=== PATIENT | male | born 1950 | race Caucasian/White ===

== ENCOUNTER 2017-08-01 19:33 | Emergency (ER) | payer MEDICARE, MEDICAID ==
[~2017-08-01] VITALS: Ht 188 cm; Wt 64.0 kg
[~2017-08-01 19:33] MED LIST: ASPI1TAB7 PO; CARV3.125 PO; COLA100C5 PO; ELVI1TAB3 PO; EMPA1TAB PO; ERGO2000 PO; ISOS60 PO; LANO0.2510 PO; MIRTA15 PO; NAPR-729 PO; PLAV75TA PO; ROSU40 PO; TOPR50TA PO; VALT1TAB PO; ZETI10TA5 PO
[2017-08-01 19:49] VITALS: BP 165/86; PULSE 76; RESP 18; TEMP 98.4; O2SAT 98
--- NOTE | 2017-08-01 20:46 | PD ---
HPI Chief Complaint: Injury Time Seen by Provider: 20:36 Travel History International Travel<30 days: No Contact w/Intl Traveler<30days: No Traveled to known affect area: No History of Present Illness HPI Patient is a 67-year-old male who says he fell yesterday hit his head but he has no injury he has some dried blood on his elbow right-sided he has some dried blood on his right knee but he says he has no pain that he says [facility] and has swelling to his left ankles tenderness redness and warmth denies that he hurt his ankle yesterday on that side he says it was fine up until today. Patient is had stents cardiac history he is on digoxin as well as metoprolol isosorbide and in his wallet he has a card that says infusion therapy, I ask him what is he getting infusion therapy for he says they just discovered cancer all through his body but nobody knows what kind it is .. 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 he is very sun exposed appearance .. 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, FIRST IN 1999, STENTS X 5 OR 6) High Cholesterol: Yes Chemotherapy: No Chest Pain: Yes Congestive Heart Failure: No COPD: No Diabetes: No Diminished Hearing: No Endocrine: No Gastrointestinal Disorders: Yes (ACID REFLUX) Glaucoma: No Genitourinary: No Hepatitis: No Hiatal Hernia: No Hypertension: Yes Immune Disorder: Yes (HIV POSITIVE) Inguinal Hernia: Yes Musculoskeletal: Yes (ARTHRITIS IN BACK AND HANDS) Neurologic: No Psychiatric: No Reproductive: No Respiratory: Yes (QUIT SMOKING 10 YEARS AGO, DIFFICULTY BREATHING ON EXERTION) Myocardial Infarction: Yes (X7) Radiation Therapy: No Sleep Apnea: No Thyroid Disease: No Triglycerides - High: Yes Tetanus Vaccination: < 5 Years Influenza Vaccination: No Past Surgical History Abdominal Surgery: Yes (HERNIA REPAIR X2) AICD: No Appendectomy: Yes Arteriovenous Shunt: No Body Medical Devices: CARDIAC STENTS (5 OR 6), MESH R GROIN Cardiac Surgery: Yes Ear Surgery: Yes (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, 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) Endocrine Surgery: No Eye Surgery: Yes Genitourinary Surgery: No Insulin Pump: No Joint Replacement: No Oral Surgery: No Pacemaker: No Thoracic Surgery: No Other Surgery: Yes (SKIN CA) Social History Alcohol Use: No Tobacco Use: No Substance Use: No Allergies-Medications (Allergen,Severity, Reaction): Coded Allergies: tomato (Verified Allergy, Severe, SOB AT TIMES, 08/05/17) Uncoded Allergies: CITRUS (Allergy, Severe, SOB AT TIMES, 02/11/09) Reported Meds & Prescriptions Reported Meds & Active Scripts Active Clindamycin (Clindamycin HCl) 300 Mg Cap 300 Mg PO TID Levaquin (Levofloxacin) 500 Mg Tablet 500 Mg PO DAILY Reported Furosemide Inj (Furosemide) 10 Mg/Ml Inj 40 Mg IV PUSH WEEKLY PRN Ns + Kcl 20 Meq Inj 1,000 Ml Bag 1,000 Ml IV WEEKLY PRN Clopidogrel (Clopidogrel Bisulfate) 75 Mg Tab 75 Mg PO DAILY Potassium Chloride ER (Potassium Chloride) 20 Meq Tab 20 Meq PO DAILY Aspirin EC (Aspirin) 81 Mg Tabdr 81 Mg PO DAILY Isosorbide Mononitrate ER (Isosorbide Mononitrate) 60 Mg Tab 60 Mg PO DAILY Metoprolol Succinate ER 24 HR (Metoprolol Succinate) 25 Mg Tab Unknown Dose PO DAILY Digoxin 0.25 Mg Tab 0.25 Mg PO DAILY Mirtazapine 15 Mg Tab 15 Mg PO HS Rosuvastatin (Rosuvastatin Calcium) 5 Mg Tab Unknown Dose PO DAILY Vitamin C (Ascorbic Acid) 250 Mg Chew 500 Mg PO DAILY Genvoya (Qjnohqefukzs-Boususcqde-Wtzejvjbtixw-Tenofvir) [phone] Mg Tab 1 Tab PO DAILY Vitamin D2 (Ergocalciferol) 2,000 Unit Tab 2,000 Units PO DAILY Jardiance (Empagliflozin) 10 Mg Tab 10 Mg PO DAILY Colace (Docusate Sodium) 100 Mg Capsule 100 Mg PO BID Valtrex (Valacyclovir HCl) 1,000 Mg Tab 1,000 Mg PO DAILY Review of Systems Except as stated in HPI: all other systems reviewed are Neg Skin: Positive Other (redness and swelling to foot left ) Physical Exam Narrative GENERAL: Pt is very sun burned and pain to foot left SKIN: Warm and dry. HEAD: Atraumatic. Normocephalic. EYES: Pupils equal and round. No scleral icterus. No injection or drainage. ENT: No nasal bleeding or discharge. Mucous membranes pink and moist. NECK: Trachea midline. No JVD. CARDIOVASCULAR: Regular rate and rhythm. RESPIRATORY: No accessory muscle use. Clear to auscultation. Breath sounds equal bilaterally. GASTROINTESTINAL: Abdomen soft, non-tender, nondistended. Hepatic and splenic margins not palpable. MUSCULOSKELETAL: Extremities left foot is red tender swollen he is diffusely suntan so it is hard to tell the extent of the redness but there is lateral malleolus swelling tenderness NEUROLOGICAL: Awake and alert. No obvious cranial nerve deficits. Motor grossly within normal limits. Five out of 5 muscle strength in the arms and legs. Normal speech. PSYCHIATRIC: Appropriate mood and affect; insight and judgment normal. Data Data Last Documented VS Vital Signs Date Time Temp Pulse Resp B/P (MAP) Pulse Ox O2 Delivery O2 Flow Rate FiO2 08/02/17 01:20 08/02/17 00:00 77 16 95 Room Air 08/01/17 19:49 98.4 Orders Orders Complete Blood Count With Diff (08/01/17 20:51) Comprehensive Metabolic Panel (08/01/17 20:51) Lactic Acid Sepsis Protocol (08/01/17 20:51) Urinalysis - C+S If Indicated (08/01/17 20:51) Blood Culture (08/01/17 20:51) Chest, Single Ap (08/01/17 20:51) Ecg Monitoring (08/01/17 20:51) Iv Access Insert/Monitor (08/01/17 20:51) Oximetry (08/01/17 20:51) Oxygen Administration (08/01/17 20:51) Foot, Complete (Uhe1gbn) (08/01/17 ) Ketorolac Inj (Toradol Inj) (08/01/17 22:45) Sodium Chlor 0.9% 1000 Ml Inj (Ns 1000 M (08/01/17 22:45) Vancomycin Inj (Vancomycin Inj) (08/01/17 22:45) Levofloxacin (Levaquin) (08/02/17 01:00) Ed Discharge Order (08/02/17 00:55) Labs Laboratory Tests Test 08/01/17 20:50 08/01/17 20:58 08/01/17 23:55 08/02/17 00:05 White Blood Count 11.0 TH/MM3 Red Blood Count 4.05 MIL/MM3 Hemoglobin 14.9 GM/DL Hematocrit 43.3 % Mean Corpuscular Volume 107.0 FL Mean Corpuscular Hemoglobin 36.9 PG Mean Corpuscular Hemoglobin Concent 34.5 % Red Cell Distribution Width 15.0 % Platelet Count 187 TH/MM3 Mean Platelet Volume 8.2 FL Neutrophils (%) (Auto) 66.5 % Lymphocytes (%) (Auto) 21.6 % Monocytes (%) (Auto) 11.0 % Eosinophils (%) (Auto) 0.5 % Basophils (%) (Auto) 0.4 % Neutrophils # (Auto) 7.3 TH/MM3 Lymphocytes # (Auto) 2.4 TH/MM3 Monocytes # (Auto) 1.2 TH/MM3 Eosinophils # (Auto) 0.1 TH/MM3 Basophils # (Auto) 0.0 TH/MM3 CBC Comment DIFF FINAL Differential Comment Blood Urea Nitrogen 20 MG/DL Creatinine 1.50 MG/DL Random Glucose 96 MG/DL Total Protein 8.2 GM/DL Albumin 4.0 GM/DL Calcium Level 9.2 MG/DL Alkaline Phosphatase 60 U/L Aspartate Amino Transf (AST/SGOT) 65 U/L Alanine Aminotransferase (ALT/SGPT) 44 U/L Total Bilirubin 0.8 MG/DL Sodium Level 137 MEQ/L Potassium Level 3.0 MEQ/L Chloride Level 102 MEQ/L Carbon Dioxide Level 25.2 MEQ/L Anion Gap 10 MEQ/L Estimat Glomerular Filtration Rate 47 ML/MIN Lactic Acid Level 3.1 mmol/L 0.9 mmol/L Urine Color LIGHT-YELLOW Urine Turbidity CLEAR Urine pH 5.5 Urine Specific [place] 1.006 Urine Protein 30 mg/dL Urine Glucose (UA) 300 mg/dL Urine Ketones NEG mg/dL Urine Occult Blood SMALL Urine Nitrite NEG Urine Bilirubin NEG Urine Urobilinogen LESS THAN 2.0 MG/DL Urine Leukocyte Esterase NEG Urine RBC 1 /hpf Urine WBC 1 /hpf Urine Mucus FEW /lpf Microscopic Urinalysis Comment CATH-CULT NOT IND MDM Medical Decision Making Medical Screen Exam Complete: Yes Emergency Medical Condition: Yes Differential Diagnosis pt reports normal CD4 and immune system Narrative Course Xray shows no signs of osteomyelitis and pt refuses to stay as inpt for Vanco IV for few days , He is made aware that if his CD4 count is low he is at risk for serios compliactions of cellulitis spreading. He insists he can not stay , I ask him to proved numbers for CD4 and ask directly if they are above 500 but he says yes, I am not convinced he knows the answer and I can not find info in the computer system to clarify, I given him dbl PO coverage with Levaquin and clindamycin to pre- empt spreading of the cellulits and discharge instructing the need for close observation of improvement or returning immediatey to ER for admit with IV antibiotics pt agrees Diagnosis Primary Impression: Cellulitis Qualified Codes: L03.90 - Cellulitis, unspecified Referrals: Juana Gutierrez DPGisell Patient Instructions: Cellulitis (ED), General Instructions Scripts Clindamycin (Clindamycin) 300 Mg Cap 300 MG PO TID for Infection, #30 CAP 0 Refills Prov: Domenico Smith MD 08/02/17 Levofloxacin (Levaquin) 500 Mg Tablet 500 MG PO DAILY for Infection, #10 TAB 0 Refills Prov: Domenico Smith MD 08/02/17 Disposition: 01 DISCHARGE HOME Domenico Smith MD Aug 01, 2017 20:46
[2017-08-01] MEDS ORDERED: METO1TAB42 PO (20:58)
[2017-08-01] MEDS ORDERED: POTA-163 PO (20:58)
[2017-08-01] MEDS ORDERED: ASPI81TA23 PO (20:58)
[2017-08-01] MEDS ORDERED: ISOS60TA PO (20:58)
[2017-08-01] MEDS ORDERED: DIGO0.25 PO (20:58)
[2017-08-01] MEDS ORDERED: CLOP75TA PO (20:58)
[2017-08-01] MEDS ORDERED: MIRTA15 PO (20:58)
[2017-08-01] MEDS ORDERED: ROSU1TAB4 PO (20:58)
[2017-08-01] MEDS ORDERED: VITA250C3 PO (20:58)
[2017-08-01 21:00] VITALS: BP 156/63; PULSE 80; RESP 16; O2SAT 98
--- NOTE | 2017-08-01 21:19 | RADRPT ---
EXAM DATE/TIME: 08/01/2017 21:00 [facility] COMPARISON: No previous studies available for comparison. INDICATIONS : Fall, complains of pain and swelling of left foot. MEDICAL HISTORY : None. SURGICAL HISTORY : None. ENCOUNTER: Initial ACUITY: 1 day PAIN SCORE: 0/10 LOCATION: Bilateral chest FINDINGS: There are calcific pleural parenchymal densities in the apices bilaterally more prominent on the righ t than the left area there chronic. There is no evidence of alveolar consolidation or pleural effusio n. Cardiomediastinal contours are satisfactory for technique and projection. CONCLUSION: No definite acute disease Juan Najera MD on August 01, 2017 at 21:16 Board Certified Radiologist. This report was verified electronically.
--- NOTE | 2017-08-01 21:20 | RADRPT ---
EXAM DATE/TIME: 08/01/2017 21:02 [facility] COMPARISON: No previous studies available for comparison. INDICATIONS : Fall, complains of pain and swelling of left foot. MEDICAL HISTORY : None. SURGICAL HISTORY : None. ENCOUNTER: Initial ACUITY: 2 days PAIN SCORE: 10/10 LOCATION: Left foot FINDINGS: Three view examination of the left foot demonstrates no soft tissue swelling, dislocation, or fractur e. The tarsal bones appear intact. The interphalangeal and metatarsophalangeal joints are intact. The calcaneus is intact. Bony mineralization is normal. CONCLUSION: Unremarkable examination of the left foot. Juan Najera MD on August 01, 2017 at 21:17 Board Certified Radiologist. This report was verified electronically.
[2017-08-01 21:29] LABS: AUTOMATED NEUTROPHIL # 7.3 TH/MM3 (1.8-7.7); BASOPHIL % 0.4 % (0.0-2.0); EOSINOPHIL # 0.1 TH/MM3 (0-0.4); EOSINOPHIL % 0.5 % (0.0-4.0); HEMATOCRIT 43.3 % (39.0-51.0); HEMOGLOBIN 14.9 GM/DL (13.0-17.0); LYMPH % 21.6 % (9.0-44.0); LYMPHOCYTE # 2.4 TH/MM3 (1.0-4.8); MEAN CORPUSCULAR HEMOGLOBIN 36.9 PG (27.0-34.0); MEAN CORPUSCULAR HGB CONC 34.5 % (32.0-36.0); MEAN PLATELET VOLUME 8.2 FL (7.0-11.0); MONOCYTE # 1.2 TH/MM3 (0-0.9); NEUT % 66.5 % (16.0-70.0); PLATELET COUNT 187 TH/MM3 (150-450); RED BLOOD COUNT 4.05 MIL/MM3 (4.50-5.90)
[2017-08-01 21:44] LABS: LACTIC ACID SEPSIS PROTOCOL 3.1 mmol/L (0.4-2.0)
[2017-08-01 21:52] LABS: AST (GOT) 65 U/L (15-37); BICARBONATE 25.2 MEQ/L (21.0-32.0); BLOOD UREA NITROGEN 20 MG/DL (7-18); CALCIUM 9.2 MG/DL (8.5-10.1); CHLORIDE 102 MEQ/L (98-107); GLOMERULAR FILTRATION RATE 47 ML/MIN (>89); GLUCOSE,RANDOM 96 MG/DL (74-106); SODIUM (NA) 137 MEQ/L (136-145)
[2017-08-01 21:53] LABS: ALT (GPT) 44 U/L (12-78)
[2017-08-01 21:55] LABS: ALKALINE PHOSPHATASE 60 U/L (45-117); TOTAL BILIRUBIN ADULT 0.8 MG/DL (0.2-1.0); TOTAL PROTEIN 8.2 GM/DL (6.4-8.2)
[2017-08-01] MEDS ORDERED: KETOROLAC TROMETHAMINE 30 MG/ML (IVP) VIAL IV PUSH ONE (22:45)
[2017-08-01] MEDS ORDERED: VANCOMYCIN INJ 1,000 MG in SODIUM CHLOR 0.9% 250 ML INJ 250 ML IV ONE (22:45)
[2017-08-01] MEDS ORDERED: SODIUM CHLOR 0.9% 1000 ML INJ 1,000 ML IV ONE (22:45)
[2017-08-02] VITALS: BP 137/61; PULSE 77; RESP 16; O2SAT 95
[2017-08-02] MEDS ORDERED: CLIN300C5 PO (00:43)
[2017-08-02] MEDS ORDERED: LEVA500T33 PO (00:43)
[2017-08-02 00:59] LABS: BILIRUBIN, URINE NEG (NEG); BLOOD, URINE SMALL (NEG); GLUCOSE,URINE 300 mg/dL (NEG); KETONE, URINE NEG (NEG); MUCUS URINE FEW /lpf (OCC); NITRITE,URINE NEG (NEG); PH, URINE 5.5 (5.0-8.5); URINE COLOR LIGHT-YELLOW (YELLW/STRAW); URINE LEUKOCYTE ESTERASE NEG (NEG)
[2017-08-02] MEDS ORDERED: LEVOFLOXACIN 750 MG TAB PO ONE (01:00)
[2017-08-05] MEDS ORDERED: CLOP75TA PO (12:06)
[2017-08-05] MEDS ORDERED: POTA0.15 IV (12:22)
[2017-08-05] MEDS ORDERED: FURO10IN IV PUSH (12:27)
== END 2017-08-02 01:24 | disposition home or self-care (01) ==
LOC: NEPK 19:33 → NEPC 08-02 01:24
DX: L03.116 Cellulitis of left lower limb (principal); I10 Essential (primary) hypertension; B20 Human immunodeficiency virus [HIV] disease
CPT/HCPCS: 71045; 73630; 80053; 81001; 83605; 85025; 87040; 96365; 96375; 99284; J1885; J3370; J7030; J7050